=== PATIENT | female | born 1965 | race Two or more races ===

== ENCOUNTER 2023-04-10 09:28 | Emergency (ER) | payer OTHER ==
[~2023-04-10] VITALS: Ht 163.8 cm; Wt 59.0 kg
[2023-04-10] MEDS ORDERED: NORVASC5 MG PO (09:40)
[2023-04-10 13:00] LABS: HEMATOCRIT 41.4 % (36.0-45.00); HEMOGLOBIN 14.5 g/dL (12.0-15.00); MEAN CELL VOLUME 87.3 fL (80.00-100.00); MEAN CORPUSCULAR HEMOGLOBIN 30.6 pg (27.00-32.0); PLATELET COUNT 211 K/uL (150-450); RED BLOOD COUNT 4.74 M/uL (4.00-6.00); RED CELL DISTRIBUTION WIDTH 12.7 % (11.5-14.5)
== END 2023-04-10 14:30 | disposition home or self-care (01) ==
LOC: ER 09:29
PROVIDERS: General Practice
DX: R05.9 Cough, unspecified (principal); I10 Essential (primary) hypertension; Z88.0 Allergy status to penicillin

== ENCOUNTER 2023-09-21 10:27 | Emergency (ER) | payer OTHER ==
[~2023-09-21] VITALS: Ht 162.6 cm; Wt 60.8 kg
[~2023-09-21 10:27] MED LIST: NORVASC5 MG PO
[2023-09-21 11:55] LABS: HEMATOCRIT 40.8 % (36.0-45.00); HEMOGLOBIN 14.9 g/dL (12.0-15.00); MEAN CELL VOLUME 86.8 fL (80.00-100.00); MEAN CORPUSCULAR HEMOGLOBIN 31.7 pg (27.00-32.0); MEAN CORPUSCULAR HGB CONC 36.5 g/dl (32.0-36.0); PLATELET COUNT 204 K/uL (150-450); RED CELL DISTRIBUTION WIDTH 11.9 % (11.5-14.5)
== END 2023-09-21 13:10 | disposition home or self-care (01) ==
LOC: ER 10:28
PROVIDERS: Emergency Medicine
DX: J06.9 Acute upper respiratory infection, unspecified (principal); Z88.0 Allergy status to penicillin; Z20.822 Contact with and (suspected) exposure to COVID-19

== ENCOUNTER 2023-10-05 09:53 | Emergency (ER) | payer OTHER ==
[~2023-10-05] VITALS: Ht 162.6 cm; Wt 60.8 kg
[2023-10-05] MEDS ORDERED: DICLOFENAC POTA50 MG PO (16:54)
== END 2023-10-05 17:10 | disposition home or self-care (01) ==
LOC: ER 09:54
DX: M16.11 Unilateral primary osteoarthritis, right hip (principal); M25.552 Pain in left hip; M25.551 Pain in right hip; Z88.0 Allergy status to penicillin; M19.90 Unspecified osteoarthritis, unspecified site; I10 Essential (primary) hypertension; M25.561 Pain in right knee

== ENCOUNTER → 2023-10-14 09:36 | Outpatient (CLI) | payer OTHER ==
[~2023-10-14 09:36] MED LIST changes: +DICLOFENAC POTA50 MG PO
== END | disposition home or self-care (01) ==
LOC: NUCLEAR 09:36
PROVIDERS: ATTEND Orthopaedic Surgery
DX: M81.0 Age-related osteoporosis without current pathological fracture (principal)

== ENCOUNTER 2023-10-20 08:10 | Outpatient (CLI) | payer OTHER | END 2023-10-20 08:18 | disposition home or self-care (01) | LOC: TOM 08:10 | PROVIDERS: ATTEND Orthopaedic Surgery | DX: M16.11 Unilateral primary osteoarthritis, right hip (principal); M25.551 Pain in right hip ==

== ENCOUNTER 2023-11-04 08:15 | Emergency (ER) | payer OTHER ==
[~2023-11-04] VITALS: Ht 162.6 cm; Wt 60.8 kg
[2023-11-04] MEDS ORDERED: CODEINE PHOSPHATE/GUAIFENESIN 5 ML ML PO STA (08:54)
[2023-11-04] MEDS ORDERED: DEXAMETHASONE SODIUM PHOSPHATE 4 MG/ML VIAL IM STA (08:54)
[2023-11-04] MEDS ORDERED: CETIRIZINE HCL 5 MG/5 ML ML PO STA (08:54)
[2023-11-04] MEDS ORDERED: GUAIFENESIN/DEXTROMETHORPHAN 10ML BLIST.PACK PO ONE (08:58)
[2023-11-04] MEDS ORDERED: DEXAMETHASONE SODIUM PHOSPHATE 4 MG/ML VIAL ONE (08:58)
[2023-11-04] MEDS ORDERED: CETIRIZINE HCL 5MG/5ML BLIST.PACK PO ONE (08:58)
[2023-11-04] MEDS ORDERED: GUAIFENESIN/DEXTROMETHORPHAN 10ML BLIST.PACK PO STA (09:33)
[2023-11-04 09:44] LABS: HEMATOCRIT 40.5 % (36.0-45.00); HEMOGLOBIN 14.1 g/dL (12.0-15.00); MEAN CELL VOLUME 88.8 fL (80.00-100.00); MEAN CORPUSCULAR HEMOGLOBIN 30.9 pg (27.00-32.0); MEAN CORPUSCULAR HGB CONC 34.9 g/dl (32.0-36.0); PLATELET COUNT 194 K/uL (150-450); RED BLOOD COUNT 4.56 M/uL (4.00-6.00); RED CELL DISTRIBUTION WIDTH 12.9 % (11.5-14.5)
[2023-11-04] MEDS ORDERED: CORTISPORIN EAR10 M1 OT (10:16)
[2023-11-04] MEDS ORDERED: ZYRTEC10 MG PO (10:16)
[2023-11-04] MEDS ORDERED: FLONASE16 GM NASAL (10:16)
[2023-11-04] MEDS ORDERED: MUCINEX DM ER1 EAC1 PO (10:16)
[2023-11-04] MEDS ORDERED: ZITHROMAX500 MG PO (10:16)
[2023-11-04] MEDS ORDERED: LEVALBUTER0.63 MG/3 IH (10:20)
== END 2023-11-04 10:56 | disposition home or self-care (01) ==
LOC: ER 08:16
PROVIDERS: General Practice
DX: J06.9 Acute upper respiratory infection, unspecified (principal); I10 Essential (primary) hypertension; E16.1 Other hypoglycemia; Z88.0 Allergy status to penicillin; Z91.041 Radiographic dye allergy status; Z20.822 Contact with and (suspected) exposure to COVID-19

== ENCOUNTER 2024-01-02 12:31 | Emergency (ER) | payer OTHER ==
[~2024-01-02] VITALS: Ht 162.6 cm; Wt 59.9 kg
[~2024-01-02 12:31] MED LIST changes: +CORTISPORIN EAR10 M1 OT; +FLONASE16 GM NASAL; +LEVALBUTER0.63 MG/3 IH; +MUCINEX DM ER1 EAC1 PO; +ZITHROMAX500 MG PO; +ZYRTEC10 MG PO
[2024-01-02] MEDS ORDERED: METHYLPREDNISOLONE SOD SUCC 125 MG VIAL IV ONE (15:00)
[2024-01-02] MEDS ORDERED: GUAIFENESIN/DEXTROMETHORPHAN 10ML BLIST.PACK PO ONE (15:00)
[2024-01-02] MEDS ORDERED: CETIRIZINE HCL 5 MG/5 ML ML PO ONE (15:00)
[2024-01-02] MEDS ORDERED: IPRATROPIUM/ALBUTEROL SULFATE 3 ML AMPUL.NEB IH SCH (15:00)
[2024-01-02 15:54] LABS: HEMATOCRIT 41.2 % (36.0-45.00); HEMOGLOBIN 14.7 g/dL (12.0-15.00); MEAN CELL VOLUME 88.5 fL (80.00-100.00); MEAN CORPUSCULAR HEMOGLOBIN 31.5 pg (27.00-32.0); MEAN CORPUSCULAR HGB CONC 35.7 g/dl (32.0-36.0); PLATELET COUNT 205 K/uL (150-450); RED BLOOD COUNT 4.65 M/uL (4.00-6.00); RED CELL DISTRIBUTION WIDTH 12.6 % (11.5-14.5)
[2024-01-02] MEDS ORDERED: ALBUTEROL2.5 MG/3 M IH (17:24)
[2024-01-02] MEDS ORDERED: IPRAT-ALBUT 0.5-3 ML IH (17:24)
[2024-01-02] MEDS ORDERED: QC TUSSIN DM L118 ML PO (17:24)
[2024-01-02] MEDS ORDERED: MEDROLPACK PO (17:24)
[2024-01-02] MEDS ORDERED: ZYRTEC10 MG PO (17:24)
== END 2024-01-02 20:10 | disposition home or self-care (01) ==
LOC: ER 12:33
PROVIDERS: Nurse Practitioner Family
DX: J06.9 Acute upper respiratory infection, unspecified (principal); Z20.822 Contact with and (suspected) exposure to COVID-19; Z88.0 Allergy status to penicillin; Z88.8 Allergy status to other drugs, medicaments and biological substances; I10 Essential (primary) hypertension

== ENCOUNTER 2024-04-06 08:08 | Emergency (ER) | payer OTHER ==
[~2024-04-06] VITALS: Ht 162.6 cm; Wt 59.9 kg
[~2024-04-06 08:08] MED LIST changes: +ALBUTEROL2.5 MG/3 M IH; +IPRAT-ALBUT 0.5-3 ML IH; +MEDROLPACK PO; +QC TUSSIN DM L118 ML PO
[2024-04-06] MEDS ORDERED: METHYLPREDNISOLONE SOD SUCC 125 MG VIAL IM STA (08:43)
[2024-04-06] MEDS ORDERED: DIPHENHYDRAMINE HCL 50 MG/ML VIAL 1ML IM STA (08:43)
[2024-04-06] MEDS ORDERED: DIPHENHYDRAMINE HCL 50 MG/ML VIAL 1ML ONE (08:49)
[2024-04-06] MEDS ORDERED: METHYLPREDNISOLONE SOD SUCC 40 MG VIAL ONE (08:49)
[2024-04-06 09:47] LABS: HEMOGLOBIN 14.4 g/dL (12.0-15.00); MEAN CELL VOLUME 88.4 fL (80.00-100.00); MEAN CORPUSCULAR HEMOGLOBIN 31.1 pg (27.00-32.0); MEAN CORPUSCULAR HGB CONC 35.2 g/dl (32.0-36.0); PLATELET COUNT 211 K/uL (150-450); RED BLOOD COUNT 4.64 M/uL (4.00-6.00); RED CELL DISTRIBUTION WIDTH 12.8 % (11.5-14.5)
[2024-04-06] MEDS ORDERED: ATARAX25 MG PO (09:58)
[2024-04-06] MEDS ORDERED: PERMETHRIN60 GM TOP (09:58)
== END 2024-04-06 11:04 | disposition home or self-care (01) ==
LOC: ER 08:11
PROVIDERS: General Practice
DX: B86 Scabies (principal); I10 Essential (primary) hypertension; E03.9 Hypothyroidism, unspecified; Z88.0 Allergy status to penicillin; Z88.8 Allergy status to other drugs, medicaments and biological substances

== ENCOUNTER 2024-06-11 09:33 | Emergency (ER) | payer OTHER ==
[~2024-06-11] VITALS: Ht 165.1 cm; Wt 57.6 kg
[~2024-06-11 09:33] MED LIST changes: +ATARAX25 MG PO; +PERMETHRIN60 GM TOP
[2024-06-11] MEDS ORDERED: ZOCOR20 MG PO (10:28)
[2024-06-11] MEDS ORDERED: IBUPROFEN600 MG PO (14:48)
== END 2024-06-11 15:09 | disposition home or self-care (01) ==
LOC: ER 09:35
DX: S99.821A Other specified injuries of right foot, initial encounter (principal); X58.XXXA Exposure to other specified factors, initial encounter; Y93.89 Activity, other specified; Y92.89 Other specified places as the place of occurrence of the external cause; Y99.8 Other external cause status; I10 Essential (primary) hypertension; Z88.0 Allergy status to penicillin; Z91.041 Radiographic dye allergy status

== ENCOUNTER → 2025-03-09 | Emergency (ER) | payer OTHER ==
[~2025-03-09] VITALS: Ht 162.6 cm; Wt 63.5 kg
[~2025-03-09] MED LIST changes: +ACETAMINOPHEN 500 MG GEL..CAP PO ONE; +CORTISPORIN EAR10 M1 OPHT; +IBUPROFEN600 MG PO; +NEOMYCIN/POLYMYXIN B/HYDROCORT 20 DR/ML BOTTLE OT ONE; +ZOCOR20 MG PO
[2025-03-09 15:06] VITALS: BP 160/78; O2SAT 99
== END | disposition home or self-care (01) ==
LOC: ER 14:23
DX: H61.22 Impacted cerumen, left ear (principal); H60.8X2 Other otitis externa, left ear; I10 Essential (primary) hypertension; Z88.0 Allergy status to penicillin; Z88.8 Allergy status to other drugs, medicaments and biological substances